=== PATIENT | male | born 1950 | race Two or more races ===

== ENCOUNTER 2022-01-23 21:22 | Emergency (ER) | payer MEDICARE, OTHER ==
[~2022-01-23] VITALS: Ht 180.3 cm; Wt 72.6 kg
[2022-01-23] MEDS ORDERED: LOSARTAN POTASSIUM 25 MG TABLET ONE (22:23)
[2022-01-23 22:25] VITALS: BP 170/90
--- NOTE | 2022-01-23 22:28 | NUR ---
Patient discharged to custodial in stable condition. Written and verbal after care instructions given. Patient verbalizes understanding of instruction.
[2022-01-23] MEDS ORDERED: LOSARTAN POTASSIUM 25 MG TABLET PO ONE (22:30)
== END 2022-01-23 22:28 | disposition home or self-care (01) ==
LOC: ER 21:25
DX: I10 Essential (primary) hypertension (principal); F17.200 Nicotine dependence, unspecified, uncomplicated

== ENCOUNTER 2022-02-17 13:28 | Emergency (ER) | payer MEDICARE, OTHER ==
[~2022-02-17] VITALS: Ht 172.7 cm; Wt 68.0 kg
[2022-02-17 13:48] VITALS: BP 128/84
--- NOTE | 2022-02-17 13:50 | NUR ---
[facility] PA FROM [facility],MORE ALTERED THAN NORMAL PER STAFF,UNKNOWN LAST KNOWN WEEL TIME,C/O GENERALIZED WEAKNESS
[2022-02-17] MEDS ORDERED: IV NS 0.9% 1,000 ML BAG IV ONE (14:30)
[2022-02-17] MEDS ORDERED: LORAZEPAM INJ 2 MG/ML VIAL IVP ONE (14:30)
[2022-02-17] MEDS ORDERED: LORAZEPAM INJ 2 MG/ML VIAL ONE (14:33)
--- NOTE | 2022-02-17 14:46 | NUR ---
COVID SWAB DONE AND SENT TO LAB
[2022-02-17 15:03] LABS: BASOPHILS % (AUTO) 0.1 % (0.0-2.0); EOSINOPHILS % (AUTO) 0.2 % (0.0-6.0); HEMATOCRIT 42 % (39-51); HEMOGLOBIN 13.9 g/dL (13.5-17.5); LYMPHOCYTES # (AUTO) 1.6 K/uL (0.8-4.8); LYMPHOCYTES % (AUTO) 22.6 % (20.0-44.0); MEAN CORPUSCULAR HGB CONC 33 g/dl (31.0-36.0); MEAN CORPUSCULAR VOLUME 95 fL (80-96); MONOCYTES # (AUTO) 0.6 K/uL (0.1-1.30); MONOCYTES % (AUTO) 8.8 % (2.0-12.0); NEUTROPHILS # (AUTO) 4.9 K/uL (1.8-8.9); NEUTROPHILS % (AUTO) 68.3 % (43.0-81.0); PLATELET COUNT (AUTO) 90 K/uL (150-450); WHITE BLOOD COUNT (AUTO) 7.1 K/uL (4.3-11.0)
[2022-02-17 15:14] LABS: CALCIUM, SERUM 8.5 mg/dL (8.5-10.1); CARBON DIOXIDE 25 mmol/L (21-32); CHLORIDE 93 mmol/L (98-107); GLUCOSE 106 mg/dL (74-106); SODIUM SERUM 132 mmol/L (136-145); UREA NITROGEN, BLOOD 27 mg/dL (7-18)
[2022-02-17 15:19] LABS: ALANINE AMINOTRANSFERASE 44 U/L (12-78); ALBUMIN 4.1 g/dL (3.4-5.0); ALCOHOL, BLOOD < 3 mg/dL (0-0); ALKALINE PHOSPHATASE 71 U/L (46-116); ASPARTATE AMINOTRANSFERASE 84 U/L (15-37); BILIRUBIN,DIRECT 0.3 mg/dL (0.0-0.2); BILIRUBIN,TOTAL 1.5 mg/dL (0.2-1.0); TOTAL PROTEIN, SERUM 8.1 g/dL (6.4-8.2)
--- NOTE | 2022-02-17 16:13 | NUR ---
URINE SAMPLE OBTAINED SENT TO LAB
[2022-02-17 17:26] LABS: BILIRUBIN,URINE 2+ (NEGATIVE); COLOR,URINE YELLOW (YELLOW); LEUKOCYTE ESTERASE ,URINE NEGATIVE (NEGATIVE); NITRITE, URINE NEGATIVE (NEGATIVE); PROTEIN,URINE 2+ mg/dl (NEGATIVE); UGLUCOSE NEGATIVE (NEGATIVE); UROBILINOGEN,URINE 0.2 EU/dL (0.2)
[2022-02-17 18:15] LABS: BACTERIA,URINE RARE /HPF (None Seen); WBC,URINE 0-2 /HPF (0-3)
--- NOTE | 2022-02-17 18:39 | NUR ---
[facility] CALLED FOR TRANSPORT ETA 75-90 MIN
--- NOTE | 2022-02-17 19:37 | NUR ---
REPORT GIVEN TO MAD[facility] FOR [facility]
--- NOTE | 2022-02-17 20:09 | NUR ---
[facility] AT PT'S BEDSIDE TO DC PT TO [facility]. [facility].
[2022-02-17 20:17] LABS: LYMPHOCYTES % (MANUAL) 18 % (16-48); MONOCYTES % (MANUAL) 6 % (0-11.0); NEUTROPHILS % (MANUAL) 76 (42-76)
== END 2022-02-17 20:09 ==
LOC: ER 13:31
DX: E86.0 Dehydration (principal); Z91.81 History of falling; I10 Essential (primary) hypertension; J44.9 Chronic obstructive pulmonary disease, unspecified; F10.90 Alcohol use, unspecified, uncomplicated; Z20.822 Contact with and (suspected) exposure to COVID-19
CPT/HCPCS: 99285; 96374; 96361; 93005; 71045; 70450; 85025; 80048; 80076; 85007; 81001; 36415; 84484 ×2; 87426; 80320; J2060; J7030; C9803; G0480

== ENCOUNTER → 2022-03-07 | Emergency (ER) | payer MEDICARE, OTHER ==
[~2022-03-07] VITALS: Ht 185.4 cm; Wt 77.6 kg
--- NOTE | 2022-03-07 13:41 | NUR ---
SEEN BY DR RUIZ AND REFUSED TO STAY PER DR RUIZ
--- NOTE | 2022-03-07 14:00 | NUR ---
X-RAY TECH AT BEDSIDE
--- NOTE | 2022-03-07 14:04 | NUR ---
SWAB FOR COVID19 AND RAPID INFLUENZA SENT TO LAB
--- NOTE | 2022-03-07 15:15 | NUR ---
Patient does not wish to proceed with medical care recommended by Dr. RUIZ. Patient given information related to possible complications, up to and including , which could occur as a result of leaving the hospital at this time. Patient verbalizes understanding of risks involved due to leaving against medical advice. Patient has signed AMA form.
[2022-03-07 15:34] VITALS: BP 100/60
== END | disposition left against medical advice (07) ==
LOC: ER 13:27
DX: U07.1 COVID-19 (principal); I10 Essential (primary) hypertension; F17.200 Nicotine dependence, unspecified, uncomplicated; Z53.29 Procedure and treatment not carried out because of patient's decision for other reasons
CPT/HCPCS: 71045-TC; C9803

== ENCOUNTER 2022-05-26 17:31 | Emergency (ER) | payer MEDICARE, OTHER ==
[~2022-05-26] VITALS: Ht 180.3 cm; Wt 86.2 kg
--- NOTE | 2022-05-26 18:30 | NUR ---
blood drawn and sent to lab
--- NOTE | 2022-05-26 18:43 | NUR ---
PATIENT TAKEN TO CT BY ALISON [facility]IA [facility]
[2022-05-26] MEDS ORDERED: HALOPERIDOL LACTATE INJ 5 MG/ML VIAL ONE (20:56)
[2022-05-26] MEDS ORDERED: HALOPERIDOL LACTATE INJ 5 MG/ML VIAL IM ONE (21:00)
--- NOTE | 2022-05-26 23:41 | NUR ---
CALLED [facility] FOR TRANSPORTATION ETA 75-90 MIN
--- NOTE | 2022-05-27 01:31 | NUR ---
[facility] RUNNING LATE ETA 15-20 MORE MINUTES
--- NOTE | 2022-05-27 03:18 | NUR ---
[facility] AT PT'S BEDSIDE TO TRANSFER PT TO [facility].
[2022-05-27 03:34] VITALS: BP 118/71
== END 2022-05-27 03:35 ==
LOC: ER 17:36
DX: S09.90XA Unspecified injury of head, initial encounter (principal); F10.129 Alcohol abuse with intoxication, unspecified; I10 Essential (primary) hypertension; F17.200 Nicotine dependence, unspecified, uncomplicated; Y90.8 Blood alcohol level of 240 mg/100 ml or more; Y04.2XXA Assault by strike against or bumped into by another person, initial encounter; Y93.89 Activity, other specified; Y92.89 Other specified places as the place of occurrence of the external cause; Y99.8 Other external cause status
CPT/HCPCS: 99285; 96372; 70450; 36415; 80320; J1630; G0480

== ENCOUNTER 2022-11-17 19:31 | Emergency (ER) | payer MEDICARE, OTHER ==
[~2022-11-17] VITALS: Ht 167.6 cm; Wt 78.5 kg
[2022-11-17 21:59] VITALS: BP 110/72; TEMP 98.1; O2SAT 98
== END 2022-11-18 00:26 ==
LOC: ER 19:51
DX: S92.332A Displaced fracture of third metatarsal bone, left foot, initial encounter for closed fracture (principal); S09.8XXA Other specified injuries of head, initial encounter; J44.9 Chronic obstructive pulmonary disease, unspecified; F17.200 Nicotine dependence, unspecified, uncomplicated; W01.0XXA Fall on same level from slipping, tripping and stumbling without subsequent striking against object, initial encounter; Y93.01 Activity, walking, marching and hiking; Y92.89 Other specified places as the place of occurrence of the external cause; Y99.8 Other external cause status
CPT/HCPCS: 70450-TC; 72125-TC; 73630-TC

== ENCOUNTER 2023-05-30 00:21 | Emergency (ER) | payer MEDICARE, OTHER ==
[~2023-05-30] VITALS: Ht 167.6 cm; Wt 77.1 kg
[2023-05-30] MEDS ORDERED: IBUPROFEN 400 MG TABLET ONE (01:57)
[2023-05-30] MEDS: IBUPROFEN 400 MG TABLET PO ONE (02:07)
[2023-05-30 02:23] LABS: BASOPHILS % (AUTO) 0.8 % (0.0-2.0); EOSINOPHILS # (AUTO) 0.1 K/uL (0.0-0.7); EOSINOPHILS % (AUTO) 1.1 % (0.0-6.0); HEMATOCRIT 35 % (39-51); HEMOGLOBIN 11.9 g/dL (13.5-17.5); LYMPHOCYTES # (AUTO) 1.2 K/uL (0.8-4.8); LYMPHOCYTES % (AUTO) 19.8 % (20.0-44.0); MEAN CORPUSCULAR HEMOGLOBIN 33 PG (26.0-33.0); MEAN CORPUSCULAR HGB CONC 34 g/dl (31.0-36.0); MEAN CORPUSCULAR VOLUME 97 fL (80-96); MONOCYTES # (AUTO) 0.5 K/uL (0.1-1.30); MONOCYTES % (AUTO) 8.4 % (2.0-12.0); NEUTROPHILS # (AUTO) 4.3 K/uL (1.8-8.9); NEUTROPHILS % (AUTO) 69.9 % (43.0-81.0); PLATELET COUNT (AUTO) 174 K/uL (150-450); RED BLOOD CELL COUNT(AUTO) 3.63 MIL/uL (4.5-6.0); RED CELL DISTRIBUTION WIDTH 19.5 % (11.5-15.0); WHITE BLOOD COUNT (AUTO) 6.1 K/uL (4.3-11.0)
[2023-05-30 02:33] LABS: CALCIUM, SERUM 9.2 mg/dL (8.5-10.1); CARBON DIOXIDE 34 mmol/L (21-32); CHLORIDE 100 mmol/L (98-107); GLUCOSE 114 mg/dL (74-106); POTASSIUM 3.9 mmol/L (3.5-5.1); SODIUM SERUM 141 mmol/L (136-145); UREA NITROGEN, BLOOD 18 mg/dL (7-18)
[2023-05-30 02:39] LABS: ALANINE AMINOTRANSFERASE 21 U/L (12-78); ALBUMIN 3.4 g/dL (3.4-5.0); ALKALINE PHOSPHATASE 111 U/L (46-116); ASPARTATE AMINOTRANSFERASE 18 U/L (15-37); BILIRUBIN,DIRECT 0.2 mg/dL (0.0-0.2); BILIRUBIN,TOTAL 0.7 mg/dL (0.2-1.0); TOTAL PROTEIN, SERUM 7.4 g/dL (6.4-8.2)
[2023-05-30] MEDS ORDERED: IBUP-1953 PO (04:08)
[2023-05-30 05:30] VITALS: BP 132/81; TEMP 98.1; O2SAT 98
== END 2023-05-30 05:31 ==
LOC: ER 00:23
DX: S22.31XA Fracture of one rib, right side, initial encounter for closed fracture (principal); J44.9 Chronic obstructive pulmonary disease, unspecified; F17.200 Nicotine dependence, unspecified, uncomplicated; X58.XXXA Exposure to other specified factors, initial encounter; Y93.89 Activity, other specified; Y92.89 Other specified places as the place of occurrence of the external cause; Y99.8 Other external cause status
CPT/HCPCS: 36415; 71100-TC; 80048-TC; 80076-TC; 84484-TC; 85025-TC; G0480

== ENCOUNTER 2023-07-19 08:53 | Emergency (ER) | payer MEDICARE, OTHER ==
[~2023-07-19] VITALS: Ht 167.6 cm; Wt 72.6 kg
[~2023-07-19 08:53] MED LIST: IBUP-1953 PO
[2023-07-19] MEDS: IV NS 0.9% 500 ML BAG IV ONE (09:30)
[2023-07-19 09:44] LABS: BASOPHILS # (AUTO) 0.1 K/uL (0.0-0.2); BASOPHILS % (AUTO) 0.7 % (0.0-2.0); EOSINOPHILS # (AUTO) 0.1 K/uL (0.0-0.7); EOSINOPHILS % (AUTO) 0.9 % (0.0-6.0); HEMATOCRIT 32 % (39-51); HEMOGLOBIN 10.8 g/dL (13.5-17.5); LYMPHOCYTES # (AUTO) 2.7 K/uL (0.8-4.8); LYMPHOCYTES % (AUTO) 37.1 % (20.0-44.0); MEAN CORPUSCULAR HEMOGLOBIN 33 PG (26.0-33.0); MEAN CORPUSCULAR HGB CONC 34 g/dl (31.0-36.0); MEAN CORPUSCULAR VOLUME 98 fL (80-96); MONOCYTES # (AUTO) 0.8 K/uL (0.1-1.30); MONOCYTES % (AUTO) 10.7 % (2.0-12.0); NEUTROPHILS # (AUTO) 3.7 K/uL (1.8-8.9); NEUTROPHILS % (AUTO) 50.6 % (43.0-81.0); PLATELET COUNT (AUTO) 650 K/uL (150-450); RED BLOOD CELL COUNT(AUTO) 3.28 MIL/uL (4.5-6.0); RED CELL DISTRIBUTION WIDTH 20.4 % (11.5-15.0); WHITE BLOOD COUNT (AUTO) 7.4 K/uL (4.3-11.0)
[2023-07-19 09:58] LABS: CALCIUM, SERUM 8.6 mg/dL (8.5-10.1); CARBON DIOXIDE 26 mmol/L (21-32); CHLORIDE 101 mmol/L (98-107); CREATININE 0.9 mg/dL (0.6-1.3); GLUCOSE 80 mg/dL (74-106); SODIUM SERUM 140 mmol/L (136-145); UREA NITROGEN, BLOOD 10 mg/dL (7-18)
[2023-07-19 10:04] LABS: ALANINE AMINOTRANSFERASE 30 U/L (12-78); ALBUMIN 3.4 g/dL (3.4-5.0); ALKALINE PHOSPHATASE 85 U/L (46-116); ASPARTATE AMINOTRANSFERASE 42 U/L (15-37); BILIRUBIN,DIRECT 0.2 mg/dL (0.0-0.2); BILIRUBIN,TOTAL 1.1 mg/dL (0.2-1.0); TOTAL PROTEIN, SERUM 7.4 g/dL (6.4-8.2)
[2023-07-19] MEDS ORDERED: LORAZEPAM 1 MG TABLET ONE (10:55)
[2023-07-19] MEDS: LORAZEPAM 1 MG TABLET PO ONE (10:59)
[2023-07-19 12:06] VITALS: BP 136/78; TEMP 98; O2SAT 98
== END 2023-07-19 12:07 | disposition home health service (06) ==
LOC: ER 08:58
DX: F10.239 Alcohol dependence with withdrawal, unspecified (principal); G25.2 Other specified forms of tremor; J44.9 Chronic obstructive pulmonary disease, unspecified; F17.200 Nicotine dependence, unspecified, uncomplicated; Y90.9 Presence of alcohol in blood, level not specified
CPT/HCPCS: 99285; 93005; 71045; 85025; 80048; 80076; 36415; 84443; 84484 ×2; 80320; J7040; G0480